=== PATIENT | female | born 1950 | race Hispanic/Latino ===

== ENCOUNTER → 2017-07-29 | Outpatient (CLI) | payer OTHER ==
[~2017-07-29] MED LIST: ASPI-1181 PO; CARB100T4 PO; CYCL30DR OU; DULO30CA51 PO; GABA-531 PO; INSU3INS3 SQ; METF500T6 PO; NAPR220C15 PO; PANT40TA25 PO; RANO500T2 PO; SIMV20TA6 PO
== END | disposition home or self-care (01) ==
LOC: SHCH 09:25
PROVIDERS: ATTEND Internal Medicine Cardiovascular Disease
DX: I51.7 Cardiomegaly (principal)
CPT/HCPCS: 93306

== ENCOUNTER → 2018-01-09 | Outpatient (CLI) | payer OTHER | END | disposition home or self-care (01) | LOC: SLP 20:27 | PROVIDERS: ATTEND Internal Medicine Cardiovascular Disease | DX: G47.30 Sleep apnea, unspecified (principal) | CPT/HCPCS: 95810 ==

== ENCOUNTER 2018-05-06 22:46 | Emergency (ER) | payer OTHER ==
[~2018-05-06 22:46] MED LIST changes: -ASPI-1181 PO; +ATOR40TA71 PO; -CYCL30DR OU; -DULO30CA51 PO; +DULO60CA63 PO; -GABA-531 PO; +INSU200I SQ; +INSU300I SQ; -INSU3INS3 SQ; -METF500T6 PO; -NAPR220C15 PO; +NAPR250T4 PO; +OMEP20TA25 PO; -PANT40TA25 PO; +PREG75 PO; -RANO500T2 PO; -SIMV20TA6 PO
[2018-05-06 23:07] LABS: BASOPHILS % (AUTO) 0.6 % (0.0-5.0); EOSINOPHILS % (AUTO) 3.1 % (0.0-8.0); HEMATOCRIT 38.2 % (36-48); LYMPHOCYTES % (AUTO) 39.5 % (21.0-51.0); MEAN CORPUSCULAR HEMOGLOBIN 31.6 pg (27.0-33.0); MEAN CORPUSCULAR HGB CONC 34.4 g/dL (32.0-36.0); MEAN CORPUSCULAR VOLUME 91.8 fL (79-99); MONOCYTES % (AUTO) 8.7 % (3.0-13.0); NEUTROPHILS % (AUTO) 48.1 % (40.0-77.0); NUCLEATED RED BLOOD CELLS 0.1 % (0.0-0.19); PLATELET COUNT (AUTO) 146 K/uL (130-400); RED BLOOD CELL COUNT(AUTO) 4.16 MIL/uL (4.00-5.50); RED CELL DISTRIBUTION WIDTH 13.2 % (11.0-15.5); WHITE BLOOD COUNT (AUTO) 7.1 K/uL (4.8-10.8)
[2018-05-06 23:25] LABS: ALBUMIN 3.3 g/dL (3.5-5.0); BILIRUBIN,TOTAL 0.4 mg/dL (0.2-1.0); CREATININE 0.8 mg/dL (0.5-1.5); TOTAL PROTEIN, SERUM 7.4 g/dL (6.0-8.3)
[2018-05-06] MEDS ORDERED: INSULIN HUMULIN R 100 UNIT/ML 3ML ONE (23:25)
[2018-05-06 23:44] LABS: APPEARANCE,URINE Clear (CLEAR); BILIRUBIN,URINE Negative (NEGATIVE); COLOR,URINE Yellow (YELLOW); GLUCOSE, URINE (UA) >=1000 mg/dL (NEGATIVE); KETONES,URINE Negative (NEGATIVE); LEUKOCYTE ESTERASE ,URINE Negative (NEGATIVE); NITRATE,URINE Negative (NEGATIVE); OCCULT BLOOD,URINE Negative (NEGATIVE); PH,URINE 6.5 (5.0-8.0); PROTEIN,URINE Negative (NEGATIVE); UROBILINOGEN,URINE 0.2 mg/dL (0.2-1.0)
[2018-05-07] MEDS ORDERED: BENZONATATE 100 MG CAPSULE PO ONE (02:15)
[2018-05-08] MEDS ORDERED: ASPI-1197 PO (12:04)
[2018-05-08] MEDS ORDERED: OMEP40CA37 PO (12:04)
[2018-05-08] MEDS ORDERED: INSU300I SQ (12:04)
[2018-05-08] MEDS ORDERED: METF-444 PO (12:04)
[2018-05-08] MEDS ORDERED: DULO30CA51 PO (12:04)
== END 2018-05-07 02:26 | disposition home or self-care (01) ==
LOC: EDH 22:46
DX: E11.65 Type 2 diabetes mellitus with hyperglycemia (principal); J06.9 Acute upper respiratory infection, unspecified; Z91.11 Patient's noncompliance with dietary regimen; I25.10 Atherosclerotic heart disease of native coronary artery without angina pectoris; F32.9 Major depressive disorder, single episode, unspecified
CPT/HCPCS: 36415; 71046; 80053; 81003; 82550; 82948 ×2; 84484; 85025; 93005; 96361; 96374; 99285; J1815

== ENCOUNTER 2018-05-08 09:52 | Observation (INO) | payer OTHER ==
[~2018-05-08] VITALS: Ht 154.9 cm; Wt 71.4 kg
[2018-05-08 00:37] VITALS: BP 141/78
[2018-05-08] MEDS ORDERED: SODIUM CHLORIDE 0.9% 1000ML 1,000 ML IV ONE (11:11)
[2018-05-08 11:45] VITALS: BP 121/71
[2018-05-08] MEDS ORDERED: OMEP40CA37 PO (12:04)
[2018-05-08] MEDS ORDERED: INSU300I SQ (12:04)
[2018-05-08] MEDS ORDERED: ASPI-1197 PO (12:04)
[2018-05-08] MEDS ORDERED: DULO30CA51 PO (12:04)
[2018-05-08] MEDS ORDERED: METF-444 PO (12:04)
[2018-05-08] MEDS ORDERED: MAG HYDROX/AL HYDROX/SIMETH ES 30 ML SUSP UDCUP PO PRN (12:30)
[2018-05-08] MEDS ORDERED: ONDANSETRON HCL MDV 20ML 2 MG/ML VIAL IVP PRN (12:30)
[2018-05-08] MEDS ORDERED: ACETAMINOPHEN 325 MG TAB PO PRN (12:30)
[2018-05-08 12:55] LABS: ALBUMIN 3.3 g/dL (3.5-5.0); BILIRUBIN,TOTAL 0.5 mg/dL (0.2-1.0); CREATININE 0.9 mg/dL (0.5-1.5); POTASSIUM 4.2 mmol/L (3.5-5.1); TOTAL PROTEIN, SERUM 7.3 g/dL (6.0-8.3)
[2018-05-08 12:57] LABS: MEAN CORPUSCULAR HEMOGLOBIN 30.7 pg (27.0-33.0); MEAN CORPUSCULAR HGB CONC 33.3 g/dL (32.0-36.0); MEAN CORPUSCULAR VOLUME 92.1 fL (79-99); PLATELET COUNT (AUTO) 137 K/uL (130-400); RED BLOOD CELL COUNT(AUTO) 4.23 MIL/uL (4.00-5.50); RED CELL DISTRIBUTION WIDTH 13.6 % (11.0-15.5); WHITE BLOOD COUNT (AUTO) 6.7 K/uL (4.8-10.8)
[2018-05-08 19:30] VITALS: BP 134/69
[2018-05-08] MEDS: SODIUM CHLORIDE 0.9% 1000ML 1,000 ML IV SCH (21:57)
[2018-05-08] MEDS: INSULIN HUMULIN R 100 UNIT/ML 3ML SQ SCH (22:58)
[2018-05-09 00:45] VITALS: BP 119/56
[2018-05-09] MEDS ORDERED: GLUCAGON 1MG KIT 1 MG ML IM PRN (02:00)
[2018-05-09] MEDS ORDERED: DEXTROSE 50%-WATER 50 ML DISP.SYRIN IV PRN (02:00)
[2018-05-09 04:40] VITALS: BP 139/69
[2018-05-09] MEDS: INSULIN HUMULIN R 100 UNIT/ML 3ML SQ SCH ×4 (06:44→23:35)
[2018-05-09 07:00] VITALS: BP 106/62
[2018-05-09] MEDS ORDERED: GADODIAMIDE 10 MMOL/20 ML ML IV ONE (10:23)
[2018-05-09 11:00] VITALS: BP 130/64
[2018-05-09 16:00] VITALS: BP 123/68
[2018-05-09] MEDS: SODIUM CHLORIDE 0.9% 1000ML 1,000 ML IV SCH (16:11)
[2018-05-09 19:25] VITALS: BP 116/60
[2018-05-10 04:40] VITALS: BP 116/61
[2018-05-10] MEDS ORDERED: INSULIN GLARGINE 100 UNITS/ML 10 ML VIAL SQ SCH (06:30)
[2018-05-10] MEDS: METFORMIN HCL 500 MG TABLET PO SCH ×2 (06:42→16:45)
[2018-05-10] MEDS: INSULIN HUMULIN R 100 UNIT/ML 3ML SQ SCH ×3 (06:52→16:51)
[2018-05-10 08:03] VITALS: BP 120/67
[2018-05-10] MEDS: MECLIZINE HCL 25 MG TABLET PO PRN ×2 (08:10→18:22)
[2018-05-10] MEDS ORDERED: DULOXETINE HCL 30 MG CAP PO SCH (09:00)
[2018-05-10] MEDS ORDERED: ASPIRIN 81MG TAB.CHEW PO SCH (09:00)
[2018-05-10] MEDS ORDERED: PANTOPRAZOLE SODIUM 40 MG TABLET.DR PO SCH (09:00)
[2018-05-10 11:34] VITALS: BP 116/66
[2018-05-10 15:34] VITALS: BP 135/66
== END 2018-05-10 19:07 | disposition home or self-care (01) ==
LOC: EDH 09:52 → EDHIP 09:53 → 3DH 11:57
PROVIDERS: ADMIT Internal Medicine; ATTEND Internal Medicine
DX: I16.1 Hypertensive emergency (principal); E11.9 Type 2 diabetes mellitus without complications; I25.10 Atherosclerotic heart disease of native coronary artery without angina pectoris; M32.9 Systemic lupus erythematosus, unspecified; F32.9 Major depressive disorder, single episode, unspecified; Z96.659 Presence of unspecified artificial knee joint; Z90.710 Acquired absence of both cervix and uterus; Z90.49 Acquired absence of other specified parts of digestive tract
CPT/HCPCS: 36415 ×2; 70553; 80053; 82533; 82627; 82948 ×11; 85027; 85651; 86038; 86140; 86215; 86235 ×2; 86431; 96372 ×3; 99285; A9579; G0378 ×57; J1815 ×4; J7030

== ENCOUNTER → 2020-01-14 | Outpatient (CLI) | payer BC, OTHER | END | disposition home or self-care (01) | LOC: OIH 10:28 | PROVIDERS: ATTEND Internal Medicine | DX: M47.817 Spondylosis without myelopathy or radiculopathy, lumbosacral region (principal); M47.898 Other spondylosis, sacral and sacrococcygeal region ==

== ENCOUNTER 2020-12-04 09:00 | Observation (INO) | payer BC, OTHER ==
[~2020-12-04] VITALS: Ht 154.9 cm; Wt 70.3 kg
[~2020-12-04 09:00] MED LIST changes: +ASPI-1197 PO; -ATOR40TA71 PO; -CARB100T4 PO; +DULO30CA52 PO; -DULO60CA63 PO; -INSU200I SQ; +METF-444 PO; -NAPR250T4 PO; -OMEP20TA25 PO; +OMEP40CA13 PO; -PREG75 PO
[2020-12-04 12:28] LABS: BASOPHILS % (AUTO) 0.4 % (0.0-5.0); EOSINOPHILS % (AUTO) 2.3 % (0.0-8.0); HEMATOCRIT 39.2 % (36-48); LYMPHOCYTES % (AUTO) 37.8 % (21.0-51.0); MEAN CORPUSCULAR HEMOGLOBIN 31.4 pg (27.0-33.0); MEAN CORPUSCULAR HGB CONC 32.4 g/dL (32.0-36.0); MEAN CORPUSCULAR VOLUME 96.8 fL (79-99); MONOCYTES % (AUTO) 6.2 % (3.0-13.0); NEUTROPHILS % (AUTO) 52.9 % (40.0-77.0); PLATELET COUNT (AUTO) 127 K/uL (130-400); RED BLOOD CELL COUNT(AUTO) 4.05 MIL/uL (4.00-5.50); RED CELL DISTRIBUTION WIDTH 13.8 % (11.0-15.5); WHITE BLOOD COUNT (AUTO) 5.7 K/uL (4.8-10.8)
[2020-12-04 12:31] LABS: APPEARANCE,URINE Clear (CLEAR); BILIRUBIN,URINE Negative (NEGATIVE); COLOR,URINE Yellow (YELLOW); GLUCOSE, URINE (UA) 250 mg/dL (NEGATIVE); KETONES,URINE Negative (NEGATIVE); LEUKOCYTE ESTERASE ,URINE Negative (NEGATIVE); NITRATE,URINE Negative (NEGATIVE); OCCULT BLOOD,URINE Negative (NEGATIVE); PH,URINE 5.5 (5.0-8.0); PROTEIN,URINE Negative (NEGATIVE)
[2020-12-04 12:33] LABS: CREATININE 0.8 mg/dL (0.5-1.5); POTASSIUM 5.2 mmol/L (3.5-5.1)
[2020-12-04 12:42] LABS: INR 1.08 (0.85-1.15); PROTHROMBIN TIME 11.1 SEC (9.6-11.6)
[2020-12-04 12:44] LABS: BACTERIA,URINE Rare /HPF (None Seen); MUCUS,URINE Few LPF (None Seen); RBC,URINE 0-1 /HPF (0-1); SQUAMOUS EPITHELIAL CELL,UR Rare /HPF (0-2); WBC,URINE 0-1 /HPF (0-1)
[2020-12-05 13:36] VITALS: BP 139/66
[2020-12-08] VITALS (23 sets, daily range): BP systolic 99–138; BP diastolic 52–73
[2020-12-08] MEDS ORDERED: CEFAZOLIN SODIUM 1 GM VIAL ONE (07:35)
[2020-12-08] MEDS ORDERED: SODIUM CHLORIDE 0.9% 1000ML 1,000 ML IV ONE (07:42)
[2020-12-08] MEDS ORDERED: ONDANSETRON HCL 4 MG/2 ML VIAL ONE (07:54)
[2020-12-08] MEDS ORDERED: PROPOFOL 10 MG/ML 20ML VIAL IV ONE (07:54)
[2020-12-08] MEDS ORDERED: LIDOCAINE PF 2% 5ML ABBOJECT ONE (07:54)
[2020-12-08] MEDS ORDERED: ROCURONIUM 10MG/1ML SYR 10 MG/ML ML ONE (07:54)
[2020-12-08] MEDS ORDERED: MIDAZOLAM HCL 1 MG/ML 2ML VIAL ONE (07:54)
[2020-12-08] MEDS ORDERED: FENTANYL CITRATE PF 50 MCG/1 ML 2ML VIAL ONE (07:55)
[2020-12-08] MEDS ORDERED: ROPIVACAINE 0.5% 5MG/ML 30ML IJ ONE (07:58)
[2020-12-08] MEDS ORDERED: GABA-529 PO (08:02)
[2020-12-08] MEDS ORDERED: INSU100V39 SQ (08:02)
[2020-12-08] MEDS ORDERED: MV-M1TAB20 PO (08:02)
[2020-12-08] MEDS ORDERED: VITA1CAP85 PO (08:02)
[2020-12-08] MEDS ORDERED: DULA3PEN SQ (08:02)
[2020-12-08] MEDS ORDERED: ACET325C6 PO (08:02)
[2020-12-08] MEDS ORDERED: INSU100V12 SQ (08:02)
[2020-12-08] MEDS ORDERED: ACETAMINOPHEN EXTRA STRENGTH 500 MG TABLET ONE (08:09)
[2020-12-08] MEDS ORDERED: CELECOXIB 200 MG CAP ONE (08:09)
[2020-12-08 08:11] LABS: CREATININE 0.8 mg/dL (0.5-1.5); POTASSIUM 3.7 mmol/L (3.5-5.1)
[2020-12-08] MEDS ORDERED: TRANEXAMIC ACID 1000MG/10ML ONE ×2 (08:41→10:51)
[2020-12-08] MEDS: CEFAZOLIN SODIUM 1 GM VIAL ONE ×2 (08:49→08:50)
[2020-12-08] MEDS ORDERED: SODIUM CHLORIDE 0.9% 10 ML VIAL ONE (08:57)
[2020-12-08] MEDS ORDERED: PHENYLEPHRINE HCL 10 MG/ML 1ML VIAL IV ONE (08:57)
[2020-12-08] MEDS ORDERED: CEFAZOLIN SODIUM 1 GM VIAL IRRIG ONE (09:12)
[2020-12-08] MEDS ORDERED: GLYCOPYRROLATE 1 MG/5 ML SYRINGE ONE (09:29)
[2020-12-08] MEDS ORDERED: NEOSTIGMINE 5MG/5ML SYR IV ONE (09:29)
[2020-12-08] MEDS ORDERED: LIDOCAINE HCL-MPF 1% 2ML VIAL IV PRN (10:45)
[2020-12-08] MEDS ORDERED: FERROUS FUMARATE 324 MG TABLET PO PRN (10:45)
[2020-12-08] MEDS ORDERED: OXYCODONE HCL 5 MG TAB PO PRN (10:45)
[2020-12-08] MEDS ORDERED: TEMAZEPAM 15 MG CAPSULE PO PRN (10:45)
[2020-12-08] MEDS ORDERED: POTASSIUM CHLORIDE 20MEQ/100ML 100 ML IV PRN (10:45)
[2020-12-08] MEDS ORDERED: ONDANSETRON HCL 4 MG/2 ML VIAL IVP PRN (10:45)
[2020-12-08] MEDS: ACETAMINOPHEN EXTRA STRENGTH 500 MG TABLET PO SCH ×2 (10:45→18:31)
[2020-12-08] MEDS ORDERED: CALCIUM CARBONATE 500 MG TABLET PO PRN (10:45)
[2020-12-08] MEDS ORDERED: POTASSIUM CHLORIDE 10% ELIXIR 20 MEQ/15 ML UDCUP PO PRN (10:45)
[2020-12-08] MEDS ORDERED: POTASSIUM CHLORIDE 20 MEQ ERTAB PO PRN (10:45)
[2020-12-08] MEDS ORDERED: DiphenhydrAMINE HCL 50 MG/ML VIAL IVP PRN (10:45)
[2020-12-08] MEDS: INSULIN HUMULIN R 100 UNIT/ML 3ML SQ SCH ×3 (11:30→21:00)
[2020-12-08] MEDS ORDERED: MEPERIDINE-PF 25 MG/ML SYG ONE (11:35)
[2020-12-08] MEDS: OXYCODONE HCL 5 MG TAB PO PRN (12:45)
[2020-12-08] MEDS: GABAPENTIN 100 MG CAPSULE PO SCH (13:18)
[2020-12-08] MEDS: VITAMIN B COMPLEX 1 CAPSULE PO SCH (13:21)
[2020-12-08] MEDS ORDERED: DULAGLUTIDE 3 MG SQ SCH (13:23)
[2020-12-08] MEDS: FE FUMARATE/FA/MV, MIN COMB#15 1 TAB PO SCH (13:25)
[2020-12-08] MEDS: SODIUM CHLORIDE 0.9% 1000ML 1,000 ML IV SCH (13:38)
[2020-12-08] MEDS: POLYETHYLENE GLYCOL 3350 17 GM POWD.PACK PO SCH (13:39)
[2020-12-08] MEDS: CEFAZOLIN SODIUM 1 GM VIAL IVP SCH (15:58)
[2020-12-08] MEDS: KETOROLAC TROMETHAMINE 15MG/ML IV PRN (15:58)
[2020-12-08] MEDS: INSULIN LISPRO 100 UNIT/ML 3ML SQ SCH (16:23)
[2020-12-08] MEDS ORDERED: INSULIN LISPRO 100 UNIT/ML 3ML SQ SCH (21:00)
[2020-12-08] MEDS: CELECOXIB 200 MG CAP PO SCH (21:29)
[2020-12-08] MEDS: FAMOTIDINE 20MG TAB 20 MG TAB PO SCH (21:29)
[2020-12-08] MEDS: ASPIRIN 81MG TAB.CHEW PO SCH (21:29)
[2020-12-08] MEDS: INSULIN GLARGINE 100 UNITS/ML 10 ML VIAL SQ SCH (21:30)
[2020-12-09] MEDS ORDERED: CEFAZOLIN SODIUM 1 GM VIAL ONE (00:48)
[2020-12-09] MEDS: CEFAZOLIN SODIUM 1 GM VIAL IVP SCH (00:55)
[2020-12-09] MEDS: ACETAMINOPHEN EXTRA STRENGTH 500 MG TABLET PO SCH ×3 (02:45→18:30)
[2020-12-09 04:03] LABS: HEMATOCRIT 29.9 % (36-48); MEAN CORPUSCULAR HEMOGLOBIN 31.5 pg (27.0-33.0); MEAN CORPUSCULAR HGB CONC 33.4 g/dL (32.0-36.0); MEAN CORPUSCULAR VOLUME 94.3 fL (79-99); RED BLOOD CELL COUNT(AUTO) 3.17 MIL/uL (4.00-5.50); RED CELL DISTRIBUTION WIDTH 13.6 % (11.0-15.5); WHITE BLOOD COUNT (AUTO) 7.1 K/uL (4.8-10.8)
[2020-12-09 04:07] VITALS: BP 107/57
[2020-12-09 04:12] LABS: CREATININE 0.8 mg/dL (0.5-1.5); POTASSIUM 4.1 mmol/L (3.5-5.1)
[2020-12-09] MEDS: OXYCODONE HCL 5 MG TAB PO PRN ×3 (04:15→14:32)
[2020-12-09] MEDS: SODIUM CHLORIDE 0.9% 1000ML 1,000 ML IV SCH (06:45)
[2020-12-09] MEDS: KETOROLAC TROMETHAMINE 15MG/ML IV PRN ×2 (06:53→16:33)
[2020-12-09] MEDS: INSULIN HUMULIN R 100 UNIT/ML 3ML SQ SCH ×4 (07:30→21:00)
[2020-12-09 07:55] VITALS: BP 117/58
[2020-12-09] MEDS: POLYETHYLENE GLYCOL 3350 17 GM POWD.PACK PO SCH (08:15)
[2020-12-09] MEDS: GABAPENTIN 100 MG CAPSULE PO SCH (08:15)
[2020-12-09] MEDS: ASPIRIN 81MG TAB.CHEW PO SCH ×2 (08:15→19:21)
[2020-12-09] MEDS: FAMOTIDINE 20MG TAB 20 MG TAB PO SCH ×2 (08:15→19:21)
[2020-12-09] MEDS: VITAMIN B COMPLEX 1 CAPSULE PO SCH (08:15)
[2020-12-09] MEDS: CELECOXIB 200 MG CAP PO SCH ×2 (08:16→19:22)
[2020-12-09] MEDS: INSULIN LISPRO 100 UNIT/ML 3ML SQ SCH ×2 (08:19→16:38)
[2020-12-09] MEDS: FE FUMARATE/FA/MV, MIN COMB#15 1 TAB PO SCH (09:00)
[2020-12-09] MEDS: TRAMADOL HCL 50 MG TABLET PO PRN ×2 (11:02→19:22)
[2020-12-09 11:05] VITALS: BP 115/49
[2020-12-09 16:23] VITALS: BP 131/57
[2020-12-09] MEDS: INSULIN GLARGINE 100 UNITS/ML 10 ML VIAL SQ SCH (19:26)
[2020-12-09 20:13] VITALS: BP 134/66
[2020-12-09] MEDS: HYDROMORPHONE 1 MG/1 ML AMP IVP PRN (23:40)
[2020-12-09 23:49] VITALS: BP 131/60
[2020-12-10] MEDS: ACETAMINOPHEN EXTRA STRENGTH 500 MG TABLET PO SCH ×3 (02:45→18:11)
[2020-12-10 04:01] VITALS: BP 117/57
[2020-12-10] MEDS: INSULIN HUMULIN R 100 UNIT/ML 3ML SQ SCH ×3 (06:03→16:30)
[2020-12-10 07:58] VITALS: BP 120/67
[2020-12-10] MEDS: FE FUMARATE/FA/MV, MIN COMB#15 1 TAB PO SCH (09:00)
[2020-12-10] MEDS: GABAPENTIN 100 MG CAPSULE PO SCH (09:21)
[2020-12-10] MEDS: VITAMIN B COMPLEX 1 CAPSULE PO SCH (09:21)
[2020-12-10] MEDS: CELECOXIB 200 MG CAP PO SCH (09:22)
[2020-12-10] MEDS: ASPIRIN 81MG TAB.CHEW PO SCH (09:22)
[2020-12-10] MEDS: FAMOTIDINE 20MG TAB 20 MG TAB PO SCH (09:22)
[2020-12-10] MEDS: HYDROMORPHONE 1 MG/1 ML AMP IVP PRN (09:22)
[2020-12-10] MEDS: POLYETHYLENE GLYCOL 3350 17 GM POWD.PACK PO SCH (09:22)
[2020-12-10] MEDS: INSULIN LISPRO 100 UNIT/ML 3ML SQ SCH ×2 (09:30→16:41)
[2020-12-10 11:15] VITALS: BP 94/50
[2020-12-10 16:27] VITALS: BP 134/61
[2020-12-10] MEDS ORDERED: ASPI-1197 PO (16:51)
[2020-12-10] MEDS ORDERED: HYDR-4060 PO (16:51)
[2020-12-11] MEDS ORDERED: BISACODYL 10 MG SUPP.RECT RC PRN (10:45)
== END 2020-12-10 17:46 | disposition home health service (06) ==
LOC: DAHIP 12-08 06:20 → EDSTATUS 12-08 09:00 → 4AH 12-08 12:01
PROVIDERS: ADMIT Orthopaedic Surgery; ATTEND Orthopaedic Surgery
DX: M17.12 Unilateral primary osteoarthritis, left knee (principal); Z20.822 Contact with and (suspected) exposure to COVID-19; I25.10 Atherosclerotic heart disease of native coronary artery without angina pectoris; E11.59 Type 2 diabetes mellitus with other circulatory complications; Z90.49 Acquired absence of other specified parts of digestive tract; Z90.710 Acquired absence of both cervix and uterus; Z95.5 Presence of coronary angioplasty implant and graft; Z79.899 Other long term (current) drug therapy
CPT/HCPCS: 27447; 36415 ×3; 80048 ×3; 81001; 82948 ×11; 85025; 85027; 85610; 87641; 93005; 96361; 96372 ×3; 96374; 96375 ×2; 96376 ×2; 97039 ×5; 97116 ×4; 97161; 97530 ×5; A4215; A4221; A4222; A4223; A4649 ×3; A4663; A4930 ×2; A9272; C1776; G0378 ×51; G8978; G8979; G8980; G8981; G8982; G8983; J0690 ×5; J1170 ×2; J1815 ×3; J1885 ×3; J2001; J2175; J2250; J2370; J2405; J2704; J2710; J2795; J3010; J3490 ×3; J7030 ×2; U0003

== ENCOUNTER → 2022-04-22 | Outpatient (CLI) | payer BC, OTHER ==
[~2022-04-22] MED LIST changes: +ACET325C6 PO; +DULA3PEN SQ; -DULO30CA52 PO; +GABA-529 PO; +HYDR-4060 PO; +INSU100V12 SQ; +INSU100V39 SQ; -INSU300I SQ; -METF-444 PO; +MV-M1TAB20 PO; -OMEP40CA13 PO; +VITA1CAP85 PO
== END | disposition home or self-care (01) ==
LOC: RAH 07:20
PROVIDERS: ATTEND Internal Medicine Gastroenterology
DX: K76.89 Other specified diseases of liver (principal); R93.2 Abnormal findings on diagnostic imaging of liver and biliary tract; K74.60 Unspecified cirrhosis of liver
CPT/HCPCS: 74150

== ENCOUNTER → 2022-05-05 | Outpatient (CLI) | payer BC, OTHER ==
[~2022-05-05] MED LIST changes: +CEPH500B PO; +IOHEXOL 350 MG/ML 100ML INFUS..BTL IV ONE
== END | disposition home or self-care (01) ==
LOC: RAH 08:31
PROVIDERS: ATTEND Internal Medicine Gastroenterology
DX: R93.2 Abnormal findings on diagnostic imaging of liver and biliary tract (principal); K74.60 Unspecified cirrhosis of liver
CPT/HCPCS: 74178; Q9967

== ENCOUNTER 2022-05-06 11:37 | Emergency (ER) | payer BC, OTHER ==
[~2022-05-06] VITALS: Ht 152.4 cm; Wt 70.8 kg
[~2022-05-06 11:37] MED LIST changes: -CEPH500B PO; -IOHEXOL 350 MG/ML 100ML INFUS..BTL IV ONE
[2022-05-06 12:28] LABS: BASOPHILS % (AUTO) 0.4 % (0.0-5.0); EOSINOPHILS % (AUTO) 2.7 % (0.0-8.0); HEMATOCRIT 38.5 % (36-48); LYMPHOCYTES % (AUTO) 36.1 % (21.0-51.0); MEAN CORPUSCULAR HEMOGLOBIN 30.9 pg (27.0-33.0); MEAN CORPUSCULAR VOLUME 90.8 fL (79-99); MONOCYTES % (AUTO) 8.1 % (3.0-13.0); NEUTROPHILS % (AUTO) 52.3 % (40.0-77.0); PLATELET COUNT (AUTO) 119 K/uL (130-400); RED BLOOD CELL COUNT(AUTO) 4.24 MIL/uL (4.00-5.50); RED CELL DISTRIBUTION WIDTH 13.5 % (11.0-15.5); WHITE BLOOD COUNT (AUTO) 5.2 K/uL (4.8-10.8)
[2022-05-06 12:39] LABS: CREATININE 0.8 mg/dL (0.5-1.5); POTASSIUM 4.3 mmol/L (3.5-5.1)
[2022-05-06 12:45] LABS: ALBUMIN 3.4 g/dL (3.5-5.0); TOTAL PROTEIN, SERUM 7.2 g/dL (6.0-8.3)
[2022-05-06 12:57] LABS: B-TYPE NATRIURETIC PEPTIDE 39 pg/mL (0-100)
[2022-05-06 13:54] LABS: APPEARANCE,URINE CLOUDY (CLEAR); BILIRUBIN,URINE NEGATIVE (NEGATIVE); COLOR,URINE YELLOW (YELLOW); GLUCOSE, URINE (UA) NEGATIVE (NEGATIVE); KETONES,URINE NEGATIVE (NEGATIVE); LEUKOCYTE ESTERASE ,URINE 250 Leu/uL (NEGATIVE); NITRATE,URINE 2+ (NEGATIVE); PH,URINE 5.5 (5.0-8.0); PROTEIN,URINE 50 mg/dL (NEGATIVE); UROBILINOGEN,URINE 0.2 mg/dL (0.2-1.0)
[2022-05-06 14:00] LABS: BACTERIA,URINE MANY /HPF (None Seen); WBC,URINE 51-100 /HPF (0-1)
[2022-05-06 14:01] LABS: MUCUS,URINE Rare LPF (None Seen); SQUAMOUS EPITHELIAL CELL,UR Moderate /HPF (0-2)
[2022-05-06] MEDS ORDERED: CEFTRIAXONE 1G VIAL ONE (14:07)
[2022-05-06] MEDS ORDERED: CEPH500B PO (14:17)
[2022-05-06] MEDS ORDERED: CEFTRIAXONE 1G VIAL IVP ONE (14:30)
[2022-05-06 14:33] VITALS: BP 92/59
== END 2022-05-06 14:34 | disposition home or self-care (01) ==
LOC: EDH 11:37
DX: N39.0 Urinary tract infection, site not specified (principal); E11.9 Type 2 diabetes mellitus without complications; Z79.4 Long term (current) use of insulin; Z79.82 Long term (current) use of aspirin; Z90.49 Acquired absence of other specified parts of digestive tract; Z95.5 Presence of coronary angioplasty implant and graft
CPT/HCPCS: 99284; 96374; 71045; 84484; 80053; 83880; 85025; 87077; 87088; 87186; 81001; 36415; 93005; J0696

== ENCOUNTER → 2022-09-20 | Outpatient (CLI) | payer BC, OTHER ==
[~2022-09-20] MED LIST changes: +CEPH500B PO
[2022-09-20 08:56] LABS: CREATININE 0.9 mg/dL (0.5-1.5); POTASSIUM 4.2 mmol/L (3.5-5.1)
== END | disposition home or self-care (01) ==
LOC: LAB 08:12
PROVIDERS: ATTEND Surgery
DX: R97.0 Elevated carcinoembryonic antigen [CEA] (principal)
CPT/HCPCS: 36415; 80048

== ENCOUNTER → 2022-09-22 | Outpatient (CLI) | payer BC, OTHER ==
[~2022-09-22] MED LIST changes: +GADOTERATE MEGLUMINE 10 MMOL/20 ML VIAL IV ONE
== END | disposition home or self-care (01) ==
LOC: RAH 07:30
PROVIDERS: ATTEND Surgery
DX: R16.2 Hepatomegaly with splenomegaly, not elsewhere classified (principal); N28.1 Cyst of kidney, acquired; R97.0 Elevated carcinoembryonic antigen [CEA]
CPT/HCPCS: 74183; 72197; A9575

== ENCOUNTER → 2023-02-07 | Outpatient (CLI) | payer BC, OTHER ==
[~2023-02-07] MED LIST changes: -GADOTERATE MEGLUMINE 10 MMOL/20 ML VIAL IV ONE; -INSU100V39 SQ; +INSU100V45 SQ
== END | disposition home or self-care (01) ==
LOC: RAH 14:30
PROVIDERS: ATTEND Family Medicine
DX: M47.16 Other spondylosis with myelopathy, lumbar region (principal); M48.061 Spinal stenosis, lumbar region without neurogenic claudication; M51.06 Intervertebral disc disorders with myelopathy, lumbar region; Z98.890 Other specified postprocedural states
CPT/HCPCS: 72148